=== PATIENT | female | born 2000 | race Caucasian/White ===

== ENCOUNTER → 2020-01-24 16:08 | Outpatient (BNVA) | payer OTHER, SELFPAY | PROVIDERS: Visit Provider Nurse Practitioner Family | DX: Z20.828 Contact with and (suspected) exposure to other viral communicable diseases (principal); J06.9 Acute upper respiratory infection, unspecified | CPT/HCPCS: 87635 ==

== ENCOUNTER 2022-06-08 21:16 | Emergency (ER) | payer SELFPAY ==
[2022-06-08 21:25] VITALS: BP 145/78; PULSE 77; RESP 14; TEMP 36.7; O2SAT 99
[2022-06-08 21:47] LABS: Basophils # 0.1 10^3/uL (0.0-0.1); Basophils % 1.1 %; Eosinophils # 0.1 10^3/uL (0.0-0.8); Eosinophils % 1.3 %; Hemoglobin 9.8 g/dL (11.5-15.3); Lymphocytes # 2.7 10^3/uL (0.8-4.8); Lymphocytes % 31.5 %; Mean Corpuscular HGB Conc 29.7 g/dL (30.0-36.0); Mean Corpuscular Hemoglobin 21.5 pg (28.0-34.0); Mean Corpuscular Volume 72.5 fl (81-99); Mean Platelet Volume 9.7 fL (7.4-10.4); Monocytes # 0.7 10^3/uL (0.2-0.9); Monocytes % 8.1 %; Neutrophils # 4.96 10^3/uL (1.8-7.7); Neutrophils % 57.8 %; Nucleated Red Blood Cells % 0 %; Platelet Count 398 10^3/cmm (130-400); Red Blood Count 4.55 10^6/uL (4.1-5.3); Red Cell Distribution Width 14.4 % (12.1-15.1); White Blood Count 8.6 10^3/uL (4.0-10.0)
[2022-06-08 22:06] LABS: Alanine Aminotransferase 26 U/L (0-33); Albumin Level 4.4 g/dL (3.5-5.2); Alkaline Phosphatase 96 U/L (35-105); Anion Gap 13.6 (5-19); Aspartate Amino Transferase 24 U/L (0-32); Blood Urea Nitrogen 8 mg/dL (6-20); Calcium 8.6 mg/dL (8.5-10.5); Carbon Dioxide 24 mmol/L (22-29); Chloride 103 mmol/L (98-107); Globulin 2.6 g/dL (1.3-4.6); Glomerular Filtration Rate 151.6 mL/min (90-130); Glucose 90 mg/dL (65-115); Lipase 33 U/L (13-60); Osmolality Calculated 282 mOsm/kg (285-295); Potassium 3.6 mmol/L (3.5-5.1); Sodium 137 mmol/L (136-145); Total Bilirubin 0.2 mg/dL (0.15-1.2)
[2022-06-08 22:12] LABS: HCG, Serum Qual Negative (Negative)
[2022-06-08 22:36] VITALS: BP 148/78; PULSE 68; RESP 16; O2SAT 100
--- NOTE | 2022-06-08 22:38 | CTR_ITS ---
PROCEDURE INFORMATION: Exam: CT Abdomen And Pelvis With Contrast Exam date and time: 06/08/2022 10:57 PM Age: 22 years old Clinical indication: Abdominal pain; Acute; Additional info: Abd pain TECHNIQUE: Imaging protocol: Computed tomography of the abdomen and pelvis with contrast. Radiation optimization: All CT scans at this facility use at least one of these dose optimization techniques: automated exposure control; mA and/or kV adjustment per patient size (includes targeted exams where dose is matched to clinical indication); or iterative reconstruction. Contrast material: OMNI 350; Contrast volume: 100 ml; Contrast route: INTRAVENOUS (IV); REPORTING DATA: Count of CT and Cardiac NM exams in prior 12 months: This patient has received 0 known CTs and 0 known cardiac nuclear medicine studies in the 12 months prior to the current study. COMPARISON: No relevant prior studies available. RADIATION DOSE METRICS: Total DLP (mGy-cm): 727.63 FINDINGS: Liver: Hepatic steatosis. Gallbladder and bile ducts: Normal. No calcified stones. No ductal dilation. Pancreas: Normal. No ductal dilation. Spleen: Spleen mildly enlarged at 13 cm. Adrenal glands: Normal. No mass. Kidneys and ureters: Normal. No hydronephrosis. Stomach and bowel: Mildly prominent fluid in the small bowel without dilation suggestive of an enteritis in the appropriate clinical setting. Diverticulosis without diverticulitis. Appendix: No evidence of appendicitis. Intraperitoneal space: Unremarkable. No free air. No significant fluid collection. Vasculature: Unremarkable. No abdominal aortic aneurysm. Lymph nodes: Unremarkable. No enlarged lymph nodes. Urinary bladder: Unremarkable as visualized. Reproductive: Unremarkable as visualized. Bones/joints: Unremarkable. No acute fracture. Soft tissues: Unremarkable. CT/CT abdomen pelvis w con* [id number] IMPRESSION: 1. Mildly prominent fluid in the small bowel without dilation suggestive of an enteritis in the appropriate clinical setting. 2. Hepatic steatosis. 3. Spleen mildly enlarged at 13 cm. 4. Diverticulosis without diverticulitis.
--- NOTE | 2022-06-08 22:39 | W.ED.ABDPA2 ---
HPI - Abdominal Pain General: Chief Complaint: Abdominal Pain Stated Complaint: ABD Pain Time Seen by Provider: 06/08/22 22:15 Source: patient Mode of arrival: ambulatory Limitations: no limitations History of Present Illness: 22-year-old female states over the last week she been having abdominal pain states been a cramping type pain mainly in her lower abdomen states she also had some nausea vomiting diarrhea with that she denies any fever she rates her pain a 5 out of 10 currently she denies any worsening proving factors denies any abdominal surgical history Associated Symptoms: Reports nausea and vomiting; Denies chills, diarrhea, dysuria and fever(s) Review of Systems Const: Denies: fever(s), chills, body aches or change in appetite Eyes: Denies: eye discomfort ENMT: Denies: throat pain or dental pain Card: Denies: chest pain Resp: Denies: dyspnea GI: Reports: abdominal pain, nausea and vomiting; Denies: diarrhea : Denies: dysuria Musc: Denies: neck pain or back pain Skin/Breast: Denies: rash Neuro: Denies: headache(s) PFSH ED PFSH: Medical History (Updated 06/08/22 @ 23:43 by Sandro Deal MD) No pertinent past medical history Social History (Updated 06/08/22 @ 22:40 by Sandro Deal MD) Substance/Drug Use: never Physical Exam Const: COMMON NORMALS: no acute distress, patient oriented x3 and healthy appearing HENMT: COMMON NORMALS: normocephalic and atraumatic HEAD & SCALP: normocephalic and atraumatic Eye: COMMON NORMALS: conjunctivae normal CONJUNCTIVA: Yes conjunctivae normal Neck/C-Spine: COMMON NORMALS: full ROM and supple Chest: COMMONS NORMALS: normal inspection of the chest and normal palpation of entire chest wall Resp: COMMON NORMALS: normal respiratory effort, No retractions, No use of accessory muscles and clear to auscultation bilaterally AUSCULTATION: clear to auscultation bilaterally Cardio: COMMON NORMALS: regular rate, regular rhythm and No murmurs present (Cardio) RATE: regular rate RHYTHM: regular rhythm GI: COMMON NORMALS: Normal to inspection, nondistended, normoactive bowel sounds present, Soft to palpation and no masses PALPATION: Yes Soft to palpation and Yes Tenderness to palpation present (GI) Details: RLQ Extremity: COMMON NORMALS: normal to inspection and full ROM Neuro: COMMON NORMALS: patient oriented x3, moves all extremities and no focal motor deficits Psych: COMMON NORMALS: mental status grossly normal, Normal thought process present and cooperative THOUGHT PROCESS: Normal thought process present Skin: COMMON NORMALS: no rashes or lesions noted and no wounds GENERAL SKIN EXAM: no rashes or lesions noted Course Vital Signs: Vital signs: Vital Signs Temperature 98.1 F 06/08/22 21:25 Pulse Rate 77 06/08/22 21:25 Respiratory Rate 18 06/08/22 22:49 Blood Pressure 145/78 06/08/22 21:25 Pulse Oximetry 98 06/08/22 22:49 Oxygen Delivery Me thod Room Air 06/08/22 21:25 MDM - Abdominal Pain Medical Decision Making Patient presents here with abdominal pain CT blood work here is all normal we will prescribe her Zofran for home she feels improved she is stable for discharge she is to follow-up PCP and return if worsening. Lab Data 06/08/22 21:43 06/08/22 21:43 Labs/Radiology: Radiology Impressions Abdomen/Pelvis CT 06/08/22 22:38 IMPRESSION: 1. Mildly prominent fluid in the small bowel without dilation suggestive of an enteritis in the appropriate clinical setting. 2. Hepatic steatosis. 3. Spleen mildly enlarged at 13 cm. 4. Diverticulosis without diverticulitis. Laboratory Results WBC 8.6 10^3/uL (4.0-10.0) 06/08/22 21:43 RBC 4.55 10^6/uL (4.1-5.3) 06/08/22 21:43 Hgb 9.8 g/dL (11.5-15.3) L 06/08/22 21:43 Hct 33.0 % (37.0-47.0) L 06/08/22 21:43 MCV 72.5 fl (81-99) L 06/08/22 21:43 MCH 21.5 pg (28.0-34.0) L 06/08/22 21:43 MCHC 29.7 g/dL (30.0-36.0) L 06/08/22 21:43 RDW 14.4 % (12.1-15.1) 06/08/22 21:43 Plt Count 398 10^3/cmm (130-400) 06/08/22 21:43 MPV 9.7 fL (7.4-10.4) 06/08/22 21:43 Neut % (Auto) 57.8 % 06/08/22 21:43 Lymph % (Auto) 31.5 % 06/08/22 21:43 [place] % (Auto) 8.1 % 06/08/22 21:43 Eos % (Auto) 1.3 % 06/08/22 21:43 Baso % (Auto) 1.1 % 06/08/22 21:43 Neut # (Auto) 4.96 10^3/uL (1.8-7.7) 06/08/22 21:43 Lymph # (Auto) 2.7 10^3/uL (0.8-4.8) 06/08/22 21:43 [place] # (Auto) 0.7 10^3/uL (0.2-0.9) 06/08/22 21:43 Eos # (Auto) 0.1 10^3/uL (0.0-0.8) 06/08/22 21:43 Baso # (Auto) 0.1 10^3/uL (0.0-0.1) 06/08/22 21:43 Nucleated RBC % (auto) 0 % 06/08/22 21:43 Nucleated RBCs # 0.0 /100WBC 06/08/22 21:43 Sodium 137 mmol/L (136-145) 06/08/22 21:43 Potassium 3.6 mmol/L (3.5-5.1) 06/08/22 21:43 Chloride 103 mmol/L (98-107) 06/08/22 21:43 Carbon Dioxide 24 mmol/L (22-29) 06/08/22 21:43 Anion Gap 13.6 (5-19) 06/08/22 21:43 BUN 8 mg/dL (6-20) 06/08/22 21:43 Creatinine 0.5 mg/dL (0.5-0.9) 06/08/22 21:43 GFR Calculation 151.6 mL/min (90-130) H 06/08/22 21:43 Glucose 90 mg/dL (65-115) 06/08/22 21:43 Calculated Osmolality 282 mOsm/kg (285-295) L 06/08/22 21:43 Calcium 8.6 mg/dL (8.5-10.5) 06/08/22 21:43 Total Bilirubin 0.2 mg/dL (0.15-1.2) 06/08/22 21:43 AST 24 U/L (0-32) 06/08/22 21:43 ALT 26 U/L (0-33) 06/08/22 21:43 Alkaline Phosphatase 96 U/L (35-105) 06/08/22 21:43 Total Protein 7.0 g/dL (6.6-8.7) 06/08/22 21:43 Albumin 4.4 g/dL (3.5-5.2) 06/08/22 21:43 Globulin 2.6 g/dL (1.3-4.6) 06/08/22 21:43 Lipase 33 U/L (13-60) 06/08/22 21:43 HCG, Qual Negative (Negative) 06/08/22 21:43 Discharge Plan Discharge Patient Disposition: Home Clinical Impression: Abdominal pain Prescriptions: New ondansetron 4 mg tablet,disintegrating 4 mg PO Q6H PRN (Reason: nausea and vomiting) Qty: 14 0RF Discharge Orders: Discharge ED (Routine); Ordered 06/08/22 Ordered By: Sandro Deal Referrals: Amber Aguilar FNP [Primary Care Provider] - 1-3 days Discharge Diet: Advance as tolerated Discharge Activity: Resume usual activity Patient Instructions: Abdominal Pain (ED) Coding Level of Care Code ED Technology Applications Engineer for Sergo Wong
[2022-06-08] MEDS: sodium chloride 0.9% 1,000 ML 999 ML IV (22:47)
[2022-06-08] MEDS: ondansetron 2 mg/ML SDV 2 mL 4 MG IVP (22:48)
[2022-06-08 22:49] VITALS: RESP 18; O2SAT 98
[2022-06-08] MEDS: morphine 4 mg/mL SDV 1 mL IVP (22:49)
[2022-06-08 22:51] VITALS: BP 145/84
[2022-06-08] MEDS: iohexol 350 mg/mL 500 mL Btl (per mL) IV (23:01)
[2022-06-08 23:07] VITALS: BP 132/97; PULSE 76; RESP 18; O2SAT 98
[2022-06-08 23:57] VITALS: BP 153/83; PULSE 72; RESP 16; O2SAT 99
[2022-06-09 00:03] LABS: Bilirubin Urine Neg (Negative); Blood Urine Neg (Negative); Glucose Urine UA Norm (Normal); Ketones Urine 1+ (Negative); Leukocyte Esterase Urine Negative (Negative); Nitrate Urine Negative (Negative); Protein Urine Trace (Negative); Specific Gravity, Urine 1.015 (1.005-1.030); Urine Appearance SL Hazy (CLEAR); Urine Color Yellow (Yellow); Urobilinogen Urine Norm (Negative); pH Urine 5 (5-7)
[2022-06-09 00:04] LABS: Add Urine Culture? No; Add Urine Microscopic? YES; Bacteria Urine TRACE /hpf; Mucus Urine 2+ /hpf; RBC Urine 0-4 /hpf (0-2); WBC Urine 0-4 /hpf (0-5)
== END 2022-06-09 00:11 | disposition home or self-care (01) ==
PROVIDERS: Emergency Provider Emergency Medicine; PCP Nurse Practitioner Family
DX: R10.9 Unspecified abdominal pain (principal); K57.90 Diverticulosis of intestine, part unspecified, without perforation or abscess without bleeding
CPT/HCPCS: 36415; 74177; 80053; 81001; 81003; 83690; 84703; 85025; 96361; 96374; 96375; 99285; J2270; J2405; J7030; Q9967

== ENCOUNTER 2022-06-30 19:44 | Emergency (ER) | payer OTHER, SELFPAY ==
--- NOTE | 2022-06-30 19:49 | XRR_ITS ---
PROCEDURE INFORMATION: Exam: XR Left Ankle Exam date and time: 06/30/2022 8:02 PM Age: 22 years old Clinical indication: Injury or trauma; Fall; Sprain or strain; Ankle; Left TECHNIQUE: Imaging protocol: Radiologic exam of the left ankle. Views: 3 or more views. COMPARISON: No relevant prior studies available. FINDINGS: Bones/joints: Normal. Soft tissues: Normal. XR/XR ankle LT min 3V* [id number] IMPRESSION: No acute findings.
[2022-06-30 20:15] VITALS: BMI 28.6
[2022-06-30 20:19] VITALS: BP 127/85; PULSE 86; RESP 18; TEMP 36.7; O2SAT 100
--- NOTE | 2022-06-30 20:29 | ED_ITS ---
HPI - Extremity Problem General: Chief complaint: Extremity Injury, Lower Stated complaint: left ankle injury Time Seen by Provider: 06/30/22 19:49 History of Present Illness: 22-year-old female comes in today with injury to the left ankle. Patient reports she was walking and excellently twisted her ankle. Patient has difficulty with weightbearing. Patient reports lateral anterior tenderness. Patient appears nontoxic. Patient appears in mild pain. Associated symptoms: Deny chest pain or fever(s) Review of Systems General: Reports: 10 or more systems reviewed and unremarkable except in HPI and below Const: Denies: fever(s) Card: Denies: chest pain Resp: Denies: dyspnea Musc: Reports: joint pain (Left ankle) [facility] ED PFSH: Medical History (Updated 06/30/22 @ 20:33 by AYAD Hilario) No pertinent past medical history Social History (Updated 06/08/22 @ 22:40 by Sandro Deal MD) Substance/Drug Use: never Female Reproductive History: Date of last menstrual period: 06/02/22 Physical Exam Const: COMMON NORMALS: alert HENMT: COMMON NORMALS: normocephalic HEAD & SCALP: normocephalic THROAT: posterior oropharynx normal Neck/C-Spine: COMMON NORMALS: full ROM Resp: COMMON NORMALS: normal respiratory effort Cardio: COMMON NORMALS: regular rate and regular rhythm RATE: regular rate RHYTHM: regular rhythm Back/Pelvis: COMMON NORMALS: thoracic and lumbar spine normal to inspection Extremity: LEFT LOWER EXTREMITY: Yes ankle joint (Anterior tenderness, minimal to no swelling) Left ankle: Yes inspection, Yes palpation, Yes ROM (Decreased range of motion due to pain) and Yes neurovascular exam Neuro: SENSORIUM/ORIENTATION: Yes alert Skin: COMMON NORMALS: turgor normal GENERAL SKIN EXAM: turgor normal Course Vital Signs: Vital signs: Vital Signs Temperature 98.1 F 06/30/22 20:19 Pulse Rate 86 06/30/22 20:19 Respiratory Rate 18 06/30/22 20:19 Blood Pressure 127/85 06/30/22 20:19 Pulse Oximetry 100 06/30/22 20:19 Oxygen Delivery Me thod Room Air 06/30/22 20:19 MDM - Extremity (Nontraumatic) Medical Decision Making Patient comes in for injury to the left ankle. On exam patient has some mild swelling and tenderness to the lateral anterior ankle. No obvious deformity. Pulses are intact. Sensation is intact. Differential diagnosis includes fractu re, sprain, contusion. X-ray notes no fracture or dislocation. Reviewed exam with patient with recommendations for rest, compression, and crutches as needed. Patient reported understanding and agreed to plan. Discharge Plan Discharge Patient Disposition: Home Clinical Impression: Ankle sprain and strain Condition: Stable Prescriptions: No Action ondansetron 4 mg tablet,disintegrating 4 mg PO Q6H PRN (Reason: nausea and vomiting) Qty: 14 0RF Discharge Orders: Discharge ED (Routine); Ordered 06/30/22 Ordered By: Mohamud Mota Referrals: Amber Aguilar FNP [Primary Care Provider] - Discharge Diet: Usual diet Discharge Activity: Increase activity as tolerated Patient Instructions: Ankle Sprain (ED) Activity Restrictions/Additional Instructions: Increase activity as tolerated. Most people able to stop using crutches within 3 days. Follow-up with primary care in 1 week for recheck. Return to ED for new concerns. Stand Alone Forms: Work/School Release Coding Level of Care Code ED Move Coordinator for Sergo Wong
--- NOTE | 2022-06-30 20:43 | PC.NURSE ---
PT GIVEN CRUTCHES AND ANKLE WRAPPED WITH MAYO WRAP.
== END 2022-06-30 20:45 | disposition home or self-care (01) ==
PROVIDERS: Emergency Provider Nurse Practitioner Family; PCP Nurse Practitioner Family
DX: S93.402A Sprain of unspecified ligament of left ankle, initial encounter (principal); S96.912A Strain of unspecified muscle and tendon at ankle and foot level, left foot, initial encounter; X50.1XXA Overexertion from prolonged static or awkward postures, initial encounter
CPT/HCPCS: 73610; 99283; E0114

== ENCOUNTER 2023-03-14 16:42 | Emergency (ER) | payer MEDICAID, SELFPAY ==
[2023-03-14 16:46] VITALS: BP 157/103; PULSE 100; RESP 18; TEMP 36.7; O2SAT 100; BMI 28.1
[2023-03-14 16:51] VITALS: BP 179/125; PULSE 89; RESP 19; O2SAT 100
--- NOTE | 2023-03-14 16:51 | ECG_ITS ---
[facility] Test Date: 2023-03-14 Pat Name: Jose Roberto Shook Department: Room: Gender: Female Mammography Tech: : 2000 Requested By: Aston Sotelo Order Number: [id number] Billy MD: Royer Bond M.D. Measurements Intervals [place] Rate: 100 P: 64 LA: 102 QRS: 62 QRSD: 94 T: 11 QT: 333 QTc: 430 Interpretive Statements SINUS TACHYCARDIA WITH SHORT LA INTERVAL MODERATE ST DEPRESSION [0.05+ mV ST DEPRESSION] No previous ECG available for comparison Electronically Signed On 03-14-2023 21:36:50 BRICK SIDING APPLICATOR by Royer Bond M.D. [id number]
--- NOTE | 2023-03-14 16:52 | XRR_ITS ---
PROCEDURE INFORMATION: Exam: XR Chest Exam date and time: 03/14/2023 5:14 PM Age: 22 years old Clinical indication: Angina pectoris; Patient HX: Mediastinal chest pain; Aflutter; No previous cardiac HX TECHNIQUE: Imaging protocol: Radiologic exam of the chest. Views: 1 view. COMPARISON: CT abdomen pelvis w con* [id number] 06/08/2022 10:57 PM FINDINGS: Lungs: Unremarkable. No consolidation. Pleural spaces: Unremarkable. No pleural effusion. No pneumothorax. Heart/Mediastinum: Unremarkable. No cardiomegaly. Bones/joints: Unremarkable. XR/XR chest 1V portable [id number] IMPRESSION: No acute findings.
[2023-03-14 17:21] VITALS: PULSE 84; RESP 16; O2SAT 99
[2023-03-14 17:22] LABS: Basophils # 0.1 10^3/uL (0.0-0.1); Basophils % 1.3 %; Eosinophils % 0.4 %; Lymphocytes # 1.8 10^3/uL (0.8-4.8); Lymphocytes % 25.1 %; Mean Corpuscular HGB Conc 31.5 g/dL (30-55); Mean Corpuscular Hemoglobin 23.6 pg (27-33); Mean Corpuscular Volume 74.8 fl (85-98); Mean Platelet Volume 9.5 fL (7.4-10.4); Monocytes # 0.5 10^3/uL (0.2-0.9); Monocytes % 6.7 %; Neutrophils # 4.74 10^3/uL (1.8-7.7); Neutrophils % 66.1 %; Nucleated Red Blood Cells % 0 %; Platelet Count 422 10^3/cmm (157-399); Red Blood Count 5.35 10^6/uL (3.85-5.65); Red Cell Distribution Width 15.2 % (12.1-15.1); White Blood Count 7.17 10^3/uL (3.29-11.43)
--- NOTE | 2023-03-14 17:36 | ED_ITS ---
HPI - Chest Pain 2 General: Chief Complaint: Chest Pain Stated Complaint: chest pains Time Seen by Provider: 03/14/23 16:52 History of Present Illness: Patient presents to the ER with complaints of intermittent palpitations. During his episode she is lightheaded dizzy feeling she got a pass out. These episodes only last for 1 to 2 minutes each and she gets them a couple times a day. She has been getting these off and on for the last couple months. Nothing seems to bring them on nor make them stop. Patient was worked up at [facility] approximately within the last week and discharged home. Patient says they found something abnormal on her EKG but she does not know what. Review of Systems 2 General: Reports: 10 or more systems reviewed and unremarkable except in HPI and below PFSH ED 2 PFSH: Medical History No pertinent past medical history Social History Substance/Drug Use: never Physical Exam 2 Const: COMMON NORMALS: no acute distress, average body habitus, patient oriented x3, no limitations, healthy appearing, alert and well nourished HENMT: COMMON NORMALS: normocephalic, atraumatic, hearing grossly normal bilaterally, external ears normal, EAC's normal, Normal external nose present, moist oral mucous membranes and oropharynx normal HEAD & SCALP: normocephalic and atraumatic NOSE: Normal external nose present EXTERNAL EAR: Yes external ears normal EXTERNAL AUDITORY CANAL: EAC's normal Neck/C-Spine: COMMON NORMALS: no JVD Chest: COMMONS NORMALS: normal inspection of the chest and normal palpation of entire chest wall Resp: COMMON NORMALS: normal respiratory effort, No retractions, No use of accessory muscles and clear to auscultation bilaterally AUSCULTATION: clear to auscultation bilaterally Cardio: COMMON NORMALS: no JVD, regular rate, regular rhythm, S1 normal heart sound present, S2 normal heart sound present, No gallops present (Cardio), No clicks present (Cardio), No murmurs present (Cardio) and No rub (Cardio) R ATE: regular rate RHYTHM: regular rhythm HEART SOUNDS: S1 normal heart sound present and S2 normal heart sound present GI: COMMON NORMALS: Normal to inspection, nondistended, normoactive bowel sounds present, Soft to palpation, non-tender, No hepatosplenomegaly present and no masses PALPATION: Yes Soft to palpation and Yes No hepatosplenomegaly present Neuro: COMMON NORMALS: patient oriented x3 SENSORIUM/ORIENTATION: Yes alert Course 2 Vital Signs: Vital signs: Vital Signs Temperature 98.1 F 03/14/23 16:46 Pulse Rate 85 03/14/23 18:21 Respiratory Rate 17 03/14/23 18:21 Blood Pressure 138/70 03/14/23 18:21 Pulse Oximetry 99 03/14/23 18:21 Oxygen Delivery Me thod Room Air 03/14/23 18:21 MDM - Chest Pain Medical Decision Making Patient presents to the ER with intermittent palpitations over the last couple weeks. Patient is already been to [facility] within the last couple days for workup. Patient presented here and had cardiac workup including CBC CMP cardiac enzymes chest x-ray and TSH. All of which was essentially benign. Troponins were negative and patient did not have any of these palpitations during her stay here. Patient be will be discharged from the ER and referred back to her family practice physician for further evaluation and treatment with possible cardiology referral. Differential Diagnosis Unlikely acute massive pulmonary embolism, acute respiratory failure, acute myocardial infarction, cardiac arrest or sudden cardiac Medical Records I reviewed the patient's medical records. Lab Data I reviewed the patient's lab results. 03/14/23 17:16 03/14/23 17:16 Radiology Impressions Chest X-Ray 03/14/23 16:52 IMPRESSION: No acute findings. Laboratory Results WBC 7.17 10^3/uL (3.29-11.43) 03/14/23 17:16 RBC 5.35 10^6/uL (3.85-5.65) 03/14/23 17:16 Hgb 12.60 g/dL (11.27-16.99) 03/14/23 17:16 Hct 40.0 % (36-47) 03/14/23 17:16 MCV 74.8 fl (85-98) L 03/14/23 17:16 MCH 23.6 pg (27-33) L 03/14/23 17:16 MCHC 31.5 g/dL (30-55) 03/14/23 17:16 RDW 15.2 % (12.1-15.1) H 03/14/23 17:16 Plt Count 422 10^3/cmm (157-399) H 03/14/23 17:16 MPV 9.5 fL (7.4-10.4) 03/14/23 17:16 Neut % (Auto) 66.1 % 03/14/23 17:16 Lymph % (Auto) 25.1 % 03/14/23 17:16 [place] % (Auto) 6.7 % 03/14/23 17:16 Eos % (Auto) 0.4 % 03/14/23 17:16 Baso % (Auto) 1.3 % 03/14/23 17:16 Neut # (Auto) 4.74 10^3/uL (1.8-7.7) 03/14/23 17:16 Lymph # (Auto) 1.8 10^3/uL (0.8-4.8) 03/14/23 17:16 [place] # (Auto) 0.5 10^3/uL (0.2-0.9) 03/14/23 17:16 Eos # (Auto) 0.0 10^3/uL (0.0-0.8) 03/14/23 17:16 Baso # (Auto) 0.1 10^3/uL (0.0-0.1) 03/14/23 17:16 Nucleated RBC % (auto) 0 % 03/14/23 17:16 Nucleated RBCs # 0.0 /100WBC 03/14/23 17:16 Sodium 138 mmol/L (136-145) 03/14/23 17:16 Potassium 4.1 mmol/L (3.5-5.1) 03/14/23 17:16 Chloride 102 mmol/L (98-107) 03/14/23 17:16 Carbon Dioxide 23 mmol/L (22-29) 03/14/23 17:16 Anion Gap 17.1 (5-19) 03/14/23 17:16 BUN 8 mg/dL (6-20) 03/14/23 17:16 Creatinine 0.6 mg/dL (0.5-0.9) 03/14/23 17:16 GFR Calculation 122.8 mL/min (90-130) 03/14/23 17:16 Glucose 88 mg/dL (65-115) 03/14/23 17:16 Calculated Osmolality 284 mOsm/kg (285-295) L 03/14/23 17:16 Calcium 9.8 mg/dL (8.5-10.5) 03/14/23 17:16 Total Bilirubin 0.4 mg/dL (0.15-1.2) 03/14/23 17:16 AST 52 U/L (0-32) H 03/14/23 17:16 ALT 59 U/L (0-33) H 03/14/23 17:16 Alkaline Phosphatase 97 U/L (35-105) 03/14/23 17:16 Troponin T Baseline 7 ng/L (0-10) 03/14/23 17:16 Total Protein 7.8 g/dL (6.6-8.7) 03/14/23 17:16 Albumin 4.9 g/dL (3.5-5.2) 03/14/23 17:16 Globulin 2.9 g/dL (1.3-4.6) 03/14/23 17:16 TSH 0.76 uIU/mL (0.27-4.20) 03/14/23 17:16 All radiology interpretation(s) finalized by discharge EKG Data EKG 1: I personally reviewed and interpreted this EKG as follows: EKG interpretation date: 03/14/23 EKG interpretation time: 16:49 Prior EKG tracings: not available for review Interpretation: EKG showed ventricular rate 100 bpm, NJ interval 102, QRS duration 94, QTc of 390, sinus tachycardia with a short NJ interval EKG 2: I personally reviewed and interpreted this EKG as follows: EKG interpretation date: 03/14/23 EKG interpretation time: 18:52 Prior EKG tracings: available for review Interpretation: EKG showed ventricular rate 78 bpm, NJ interval 111, QRS duration 93, QTc of 416, sinus rhythm with a short NJ interval Discharge Plan Discharge Patient Disposition: Home Clinical Impression: Heart palpitations Condition: Stable Prescriptions: No Action ondansetron 4 mg tablet,disintegrating 4 mg PO Q6H PRN (Reason: nausea and vomiting) Qty: 14 0RF Discharge Orders: Discharge ED (Routine); Ordered 03/14/23 Ordered By: Ron De Luna Referrals: Amber Aguilar FNP [Primary Care Provider] - 1 week Patient Instructions: Heart Palpitations Activity Restrictions/Additional Instructions: Your workup in the ER did not show any acute cause for your palpitations. Please follow-up with your family practice physician for further evaluation and treatment. Your family practice physician may refer to cardiology for further workup. Coding Level of Care Code ED Physical Plant Employee for Sergo Wong
[2023-03-14 17:44] LABS: Troponin(5th) Baseline 7 ng/L (0-10)
[2023-03-14 17:45] LABS: Alanine Aminotransferase 59 U/L (0-33); Albumin Level 4.9 g/dL (3.5-5.2); Alkaline Phosphatase 97 U/L (35-105); Anion Gap 17.1 (5-19); Aspartate Amino Transferase 52 U/L (0-32); Blood Urea Nitrogen 8 mg/dL (6-20); Calcium 9.8 mg/dL (8.5-10.5); Carbon Dioxide 23 mmol/L (22-29); Chloride 102 mmol/L (98-107); Globulin 2.9 g/dL (1.3-4.6); Glomerular Filtration Rate 122.8 mL/min (90-130); Glucose 88 mg/dL (65-115); Osmolality Calculated 284 mOsm/kg (285-295); Potassium 4.1 mmol/L (3.5-5.1); Sodium 138 mmol/L (136-145); Total Bilirubin 0.4 mg/dL (0.15-1.2); Total Protein 7.8 g/dL (6.6-8.7)
[2023-03-14 17:51] VITALS: BP 162/107; PULSE 85; RESP 19; O2SAT 100
[2023-03-14 18:02] LABS: Thyroid Stimulating Hormone 0.76 uIU/mL (0.27-4.20)
[2023-03-14 18:21] VITALS: BP 138/70; PULSE 85; RESP 17; O2SAT 99
--- NOTE | 2023-03-14 18:48 | PC.NURSE ---
information writer assumed care of pt at 1848, report from boo coburn
--- NOTE | 2023-03-14 18:52 | ECG_ITS ---
[facility] Test Date: 2023-03-14 Pat Name: Jose Roberto Shook Department: Room: Gender: Female Manufacturing Engineer Supervisor: : 2000 Requested By: Ron De Luna Order Number: [id number] Wenceslao MD: Royer Bond M.D. Measurements Intervals [place] Rate: 78 P: 51 [place]: 111 QRS: 70 QRSD: 93 T: 44 QT: 382 QTc: 438 Interpretive Statements SINUS RHYTHM WITH SHORT WA INTERVAL Compared to ECG 03/14/2023 16:49:17 Sinus tachycardia no longer present ST (T wave) deviation no longer present Electronically Signed On 03-14-2023 21:40:38 MAIL CARRIER AND CLERK by Royer Bond M.D. [id number]
[2023-03-14 19:00] VITALS: BP 131/88; PULSE 88; RESP 16; O2SAT 100
== END 2023-03-14 19:02 | disposition home or self-care (01) ==
PROVIDERS: Emergency Provider Emergency Medicine; PCP Nurse Practitioner Family
DX: R00.2 Palpitations (principal)
CPT/HCPCS: 71045; 80053; 84443; 84484; 85025; 93005; 99285